=== PATIENT | female | born 1955 | race Caucasian/White ===

== ENCOUNTER 2016-08-03 05:46 | Day surgery (SDC) | payer OTHER ==
[~2016-08-03] VITALS: Ht 162.6 cm; Wt 93.5 kg
--- NOTE | ~2016-08-03 | OR ---
PATIENT'S NAME: DEBORAH CADET [facility] AGE: 60 Y [address] ROOM: [address] [address] LOCATION: [facility] ADMIT DATE: 08/03/2016 OR/Procedure Report DISCHARGE DATE: FAMILY PHYSICIAN: Irwin Holman MD ATTENDING PHYSICIAN: Mark Echeverria SURGEON: Mark Echeverria MD BOTTOMING MACHINE OPERATOR: No vector control assistant. DATE OF PROCEDURE: 08/03/2016 PREOPERATIVE DIAGNOSIS: Cystourethrocele grade 3, stress urinary incontinence. POSTOPERATIVE DIAGNOSIS: Cystourethrocele grade 3, stress urinary incontinence. PROCEDURE: Anterior colporrhaphy, placement of the transvaginal tape by Dr. Kaplan. ANESTHESIA: General endotracheal anesthesia. ESTIMATED BLOOD LOSS: 10 mL. CLINICAL INDICATION: Deborah Cadet is a 60-year-old female with grade 3 cystourethrocele and stress urinary incontinence. She has already had a hysterectomy. She desires definitive surgical correction. FINDINGS: Grade 3 cystourethrocele and a grade 1 rectocele. DESCRIPTION OF PROCEDURE: The patient taken operative room and given general endotracheal anesthesia with good results, placed in a lithotomy position, prepped and draped in the usual fashion. Posterior weighted speculum and anterior vaginal retractor were inserted into the vagina. The vaginal cuff was grasped with Dairy clamps. The mucosa was injected with lidocaine with epinephrine vertically in the midline. The skin was incised sharply and the skin was then undermined and incised sharply vertically in the midline. Submucosa dissected using a combination of sharp and blunt dissection. At this point time, we stepped aside. Dr. Kaplan placed the transvaginal tape. Following the placement of the transvaginal tape, the lateral aspects of the endopelvic fascia were reapproximated using a series of horizontal mattress stitches of 0 Vicryl suture. Two layers were employed, redundant vaginal mucosa excised sharply. The skin was then closed with a running continually locking stitch of 2-0 Vicryl suture. Sponge, needle, and instrument counts were correct. The patient tolerated the procedure well, was taken to the recovery room in good condition. PATIENT'S NAME: DEBORAH CADET [facility] AGE: 60 Y [address] ROOM: [address] [address] LOCATION: [facility] ADMIT DATE: 08/03/2016 OR/Procedure Report DISCHARGE DATE: FAMILY PHYSICIAN: Irwin Holman MD ATTENDING PHYSICIAN: Mark Echeverria MARK ECHEVERRIA MD [facility]/modl /[id number] d: 08/03/16 1450 t: 08/05/16 0828, OPERATIVE SUMMARY
--- NOTE | ~2016-08-03 | OR ---
PATIENT'S NAME: FELICIA DE JESUS [facility] AGE: 60 Y [address] ROOM: [address] [address] LOCATION: [facility] ADMIT DATE: 08/03/2016 OR/Procedure Report DISCHARGE DATE: FAMILY PHYSICIAN: Irwin Holman MD ATTENDING PHYSICIAN: Yandel Echeverria SURGEON: Davey Burgos MD COMPUTER SYSTEMS AUDITOR: DATE OF PROCEDURE: 08/03/2016 PREOPERATIVE DIAGNOSIS: Prolapse with associated stress urinary incontinence. POSTOPERATIVE DIAGNOSIS: Prolapse with associated stress urinary incontinence. PROCEDURE: Midurethral tension-free suspension in conjunction with Dr. Echeverria's anterior repair. ANESTHESIA: General. INDICATION: This is a 60-year-old lady with documented stress urinary incontinence. She has complicating features including an associated prolapse. She also has urge component and occasional fecal incontinence. She has many years status post hysterectomy. She has tried anticholinergics and beta-3 agonist. She presents at this time for a repair of her prolapse as well as a midurethral suspension. She understands she may still have an urge component postoperatively, and this likely will not affect her occasional fecal incontinence. DESCRIPTION OF PROCEDURE: Having obtained her informed consent, the patient was taken to the operating room. She was prepped and draped sterilely and in lithotomy position. General anesthesia was administered. Dr. Echeverria had done some initial dissection. I then scrubbed in. The Christina catheter was placed. The mid urethra was palpated. Suprapubic stab incisions were made. Trocars were passed down behind the pubic bone and out through the endopelvic fascia at the level of the mid urethra. Cystoscopy was then undertaken. The trocars appeared to be in good position. Other than her marked prolapse, the careful bladder examination was unremarkable. With the trocars in good position, the mesh is secured. It is brought up through the abdominal wall. A curved Baldwin scissors is insinuated between the mesh and the urethra ensuring there was no tension. Excess is trimmed. The patient tolerated this portion of procedure well. Blood loss was negligible. No specimens were sent. The patient remained in the operating PATIENT'S NAME: FELICIA DE JESUS [facility] AGE: 60 Y [address] ROOM: [address] [address] LOCATION: [facility] ADMIT DATE: 08/03/2016 OR/Procedure Report DISCHARGE DATE: FAMILY PHYSICIAN: Irwin Holman MD ATTENDING PHYSICIAN: Yandel Echeverria room for completion of her anterior repair with Dr. Echeverria. DAVEY BURGOS MD [facility]/crowl /[id number] CC: MD Yandel Ornelas MD d: 08/03/16 1115 t: 08/04/16 1039, OPERATIVE SUMMARY
[~2016-08-03 05:46] MED LIST: CALTRATE 600 WI1 TAB PO; DYAZIDE 37.5-21 EACH PO; GLUCOPHAGE500 MG PO; PRAVACHOL40 MG PO; THERAGRAN-M1 TAB PO
[2016-08-03] MEDS ORDERED: NORCO 5-325 TA1 EACH PO (14:40)
== END 2016-08-03 17:40 | disposition disaster alternative care site (69) ==
LOC: GOBS 05:46 → GSDC 05:46 → GOBS 05:48 → GSDC 07:00
PROC: 0TSD0ZZ Reposition Urethra, Open Approach (ICD-10-PCS; principal; 2016-08-03)
PROC: 0JQC0ZZ Repair Pelvic Region Subcutaneous Tissue and Fascia, Open Approach (ICD-10-PCS; 2016-08-03)
PROC: 0TQD0ZZ Repair Urethra, Open Approach (ICD-10-PCS; 2016-08-03)
DX: N39.3 Stress incontinence (female) (male) (principal); N81.10 Cystocele, unspecified; I10 Essential (primary) hypertension; E78.5 Hyperlipidemia, unspecified; E11.9 Type 2 diabetes mellitus without complications; F32.9 Major depressive disorder, single episode, unspecified; Z90.710 Acquired absence of both cervix and uterus; Z88.8 Allergy status to other drugs, medicaments and biological substances; Z79.84 Long term (current) use of oral hypoglycemic drugs; Z79.899 Other long term (current) drug therapy
CPT/HCPCS: C2631; J0690; J0694; J2405; J7030